=== PATIENT | female | born 1985 | race Caucasian/White ===

== ENCOUNTER → 2016-10-21 | Outpatient (CLI) | payer BC ==
[~2016-10-21] MED LIST: OXYC-57 PO; PRENTAB26 PO
== END | disposition home or self-care (01) ==
LOC: C.PAPS 14:53 → MERGE 14:53
PROVIDERS: ATTEND Physician Assistant
DX: Z01.419 Encounter for gynecological examination (general) (routine) without abnormal findings (principal); Z11.51 Encounter for screening for human papillomavirus (HPV)

== ENCOUNTER 2021-03-25 05:29 | Inpatient (IN) ==
--- NOTE | 2021-03-15 10:06 | Anesthesiology Consultation ---
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 No known Covid infection in the past 90 days. Patient is vaccinated for Covid. No known Covid positive contacts or Covid related symptoms. Preop Covid testing 03/21/21= will await results History Surgery Operation Date: 03/25/21 07:30 Proposed Procedures p Section Delivery of Baby through abdominal Incision - Marilu Fleming MD, FACOG s Bilateral Tubal Ligation - Marilu Fleming MD, FACOG Height/Weight Height: 5 ft 9 in Weight: 94.801 kg Allergies Allergy/AdvReac Type Severity Reaction Status Date / Time No Known Drug Allergies Allergy Verified 03/14/21 15:35 Medications Home Medications Medication Instructions Recorded Confirmed Last Taken prenat.vits,luisa,[id number] 1 tab PO QDL 03/10/19 03/14/21 Unknown valacyclovir 1 gram tablet 1,000 mg PO QDL 03/14/21 03/14/21 Unknown (Valtrex) Past Medical History Medical History History of COVID-19 03/2020; loss of taste/smell; resolved History of oligohydramnios Mild cervical dysplasia Past Family History Family History Grandmother (Paternal) Pancreatic cancer Mother Hypertension Father Hypertension Other No family history of adverse response to anesthesia Denies family history of Ovarian cancer Breast cancer Colorectal cancer Past Surgical History Surgical History History of colposcopy History of wisdom tooth extraction S/P section x2 Social History Smoking Status: Never smoker Do You Dip or Chew Tobacco: No Hx Alcohol Use: No Hx Substance Use: No substance use type: does not use Testing Electrocardiogram Date: 07/19/20 Normal sinus rhythm at 97 bpm. Possible left atrial enlargement.
--- NOTE | 2021-03-18 16:20 | History and Physical Report ---
DATE OF ADMISSION AND PLANNED DATE OF : 03/25/2021 PREOPERATIVE DIAGNOSES: 1. Intrauterine at 39 and 5/7 weeks. 2. Advanced maternal age. 3. History of previous section x2, desires repeat. 4. Desire for permanent surgical sterilization. 5. Herpes simplex virus, on Valtrex prophylaxis. HISTORY OF PRESENT ILLNESS: This patient is a 35-year-old white female, 3, para 2-0-0-2, who presents for repeat and tubal ligation. In 03/2015, she had her first baby at 41 weeks, measuring 7 pounds 12 ounces, male, by . This was complicated by oligohydramnios. Her second was in 06/2017, she had a 39-week repeat for a 6-pound male infant in [place], [place]. She now presents for her third . Given 2 previous C-sections, a repeat was recommended. She also desires permanent surgical sterilization. The has been uncomplicated. She has advanced maternal age and testing has been good and reassuring. Baby is in vertex presentation. She notes good movement and no labor symptoms at her preoperative visit today. ALLERGIES: No known drug allergies. MEDICATIONS: vitamins and valacyclovir 1 g daily. PAST MEDICAL HISTORY: Significant for history of COVID-19 in 03/2020 and a history of mild cervical dysplasia. PAST SURGICAL HISTORY: She has had a history of colposcopy, wisdom teeth extraction and x2. FAMILY HISTORY: Noncontributory. PAST OBSTETRICAL AND GYNECOLOGIC HISTORY: As noted above. SOCIAL HISTORY: The patient does not smoke or drink alcohol. She denies drug use. She lives with her spouse and 2 sons. 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 She has received a COVID vaccine. PHYSICAL EXAMINATION: GENERAL: This is a well-developed, well-nourished white female in no acute distress. VITAL SIGNS: Her blood pressure was 118/80 and her weight is 211 pounds. NECK: Supple. HEART: Regular rate and rhythm. LUNGS: Clear to auscultation. ABDOMEN: Soft and gravid. EXTREMITIES: Show no edema. PELVIS: Cervix is deferred. She has a reactive NST in the office. LABORATORY DATA: Blood type A positive, antibody negative, rubella immune, RPR nonreactive, HIV negative, hepatitis B negative. Glucose tolerance test, she originally failed the 28-week glucose at 132. She did a 2-hour and failed the fasting, but then fasted appropriately and a 2-hour was repeated and was normal. Chlamydia and gonorrhea negative. Low-risk Panorama, cystic fibrosis and spinal muscular atrophy negative in the last . IMPRESSION AND PLAN: Jasmine is a 35-year-old white female, 3, para 2-0-0-2 with a history of previous section x2, who now presents for a third repeat section and tubal sterilization. The risks of the procedure were discussed with the patient including the risks of anesthesia, bleeding requiring transfusion, infection, poor wound healing, damage to surrounding structures including bowel, bladder, vessels, nerves and ureters with need for further surgery, hospitalization or intervention. We discussed the possible injury to baby. We discussed the other risks involved with any surgery including heart attack, blood clot, stroke, or . Consent was reviewed and signed. She desires a tubal ligation. She declines other reversible forms of contraception including vasectomy for her . She understands the permanence of this and that should she have a failure, there is an increased risk of ectopic. Job ID: [id number] [facility]
[2021-03-25] MEDS ORDERED: CITRIC ACID/SODIUM CITRATE 15 ML UDC PO SCH (06:00)
[2021-03-25] MEDS ORDERED: ceFAZolin 2,000 MG in SYRINGE 0 ML IV SCH (06:00)
[2021-03-25] MEDS ORDERED: LACTATED RINGER'S 1,000 ML IV SCH ×2 (06:00→08:45)
[2021-03-25 06:33] LABS: Basophils # (auto) 0.02 K/uL (0-0.2); Basophils % (auto) 0.2 %; Eosinophils % (auto) 1.1 %; Hematocrit (blood only) 41.2 % (37-47); Hemoglobin 14.6 g/dL (12.0-16.0); Immature Granulocytes # (auto) 0.12 K/uL (0.00-0.02); Immature Granulocytes % (auto) 1.4 %; Lymphocytes # (auto) 1.68 K/uL (1.2-3.4); Lymphocytes % (auto) 19.1 %; Mean Corpuscular Hemoglobin 31.5 pg (25-34); Mean Corpuscular Hgb Conc 35.4 g/dL (32-36); Mean Platelet Volume 10.6 fL (7.4-10.4); Monocytes # (auto) 0.74 K/uL (0.11-0.59); Monocytes % (auto) 8.4 %; Neutrophils # (auto) 6.13 K/uL (1.4-6.5); Neutrophils % (auto) 69.8 %; Platelet Count 221 K/uL (130-400); RDW Coefficient of Variation 12.8 % (11.5-14.5); RDW Standard Deviation 41.4 fL (36.4-46.3); Red Blood Count 4.63 M/uL (4.2-5.4); White Blood Count 8.79 K/uL (4.8-10.8)
[2021-03-25] MEDS ORDERED: MoRPHine SULFATE PF 1 MG/ML 10 ML AMP/VIAL ONE (06:42)
[2021-03-25] MEDS ORDERED: fentaNYL citrate 100 MCG/2 ML VIAL ONE (06:42)
[2021-03-25] MEDS ORDERED: OXYTOCIN 10 UNITS/ML VIAL ONE (06:42)
--- NOTE | 2021-03-25 07:13 | History & Physical Bridge Note ---
Date of Service March 25, 2021 History & Physical Bridge Note I have examined the patient, reviewed the History & Physical and in the interval since the performance of the History & Physical I have noted the following changes of clinical significance: no changes noted
[2021-03-25] MEDS ORDERED: ePHEDrine sulfate 50 MG/ML SYR ONE (07:58)
[2021-03-25] MEDS ORDERED: PHENYLEPHRINE 100MCG/ML 5ML SYR ONE (08:00)
[2021-03-25] MEDS ORDERED: diphenhydrAMINE 50 MG/ML VIAL IV PRN (08:19)
[2021-03-25] MEDS ORDERED: NALOXONE HCL 1 MG in SODIUM CHLORIDE 0.9% 1000ML 1,000 ML IV PRN (08:19)
[2021-03-25] MEDS ORDERED: MoRPHine SULFATE 2 MG/ML CARP IV PRN (08:19)
[2021-03-25] MEDS ORDERED: ONDANSETRON INJ 2 MG/ML 2 ML VIAL IV PRN (08:19)
[2021-03-25] MEDS ORDERED: NALOXONE HCL 0.4 MG/1 ML VIAL/CARP IV PRN (08:19)
[2021-03-25] MEDS ORDERED: ePHEDrine sulfate 50 MG/ML AMP IV PRN (08:19)
[2021-03-25] MEDS ORDERED: NALBUPHINE HCL INJ 10 MG/ML AMP IV PRN (08:19)
[2021-03-25] MEDS ORDERED: NALOXONE HCL 0.08 MG in SYRINGE 1.8 ML IV PRN (08:19)
[2021-03-25] MEDS ORDERED: MoRPHine SULFATE PF 1 MG/ML 10 ML AMP/VIAL INT SPINAL ONE (08:19)
[2021-03-25] MEDS ORDERED: LACTATED RINGER'S 500 ML IV PRN (08:19)
[2021-03-25] MEDS ORDERED: NO NARCOTICS OR SEDATIVES SCH (08:30)
[2021-03-25] MEDS ORDERED: DC INTRASPINAL MORPHINE SCH (08:30)
[2021-03-25] MEDS ORDERED: SODIUM CHLORIDE 0.9% 1000ML 1,000 ML IV SCH (08:30)
[2021-03-25] MEDS ORDERED: HYDROCORTISONE ACETATE 25 MG SUPP PR PRN (08:43)
[2021-03-25] MEDS ORDERED: BENZOCAINE 20% AER SPR 82.5 GM CAN EXT PRN (08:43)
[2021-03-25] MEDS ORDERED: DIPHTHERIA/TETANUS/PERTUSSIS 0.5 ML SYR/VIAL IM ONE (08:43)
[2021-03-25] MEDS ORDERED: SENNA 8.6 MG TAB PO PRN (08:43)
[2021-03-25] MEDS ORDERED: SUPERCREAM 0.870% 15 GM JAR EXT PRN (08:43)
[2021-03-25] MEDS ORDERED: MAGNESIUM HYDROXIDE SUSP 30 ML UDC PO PRN (08:43)
--- NOTE | 2021-03-25 08:50 | Operative Report ---
PG Post Operative Report Pre & Post Diagnosis Operation Date: 03/25/21 07:30 Pre-Op Diagnosis: ; Previous c/s x 2, Request for sterilization Post-Op Diagnosis: Same; Delivery of a live male child at 0812 ( Main OR 3) I identified the patient and participated in the time-out.: Yes Procedure Operation Date: 03/25/21 07:30 Actual Procedures p Repeat lower transverse Section Delivery of Baby through abdominal Incision - Marilu Fleming MD, FACOG s Bilateral Tubal Ligation(Bilateral) - Marilu Fleming MD, FACOG Surgeon Marilu Fleming MD, FACOG Crystallizer Operator Eric Caban, MS2 Estimated Blood Loss 600 Findings Consistent with Post-Op Diagnosis viable male in cephalic presentation, nl tubes /ovs noted. apgars pending Fluids 900cc Specimens bilateral tubal segments Drains diaz Complications none Disposition Accompanied Patient To Recovery: Yes Disposition: L&D Indications [id number] who presents for repeat c/s and tubal. Description of Procedure The patient was taken to the operating room where she was identified verbally and by bracelet. She was seated on the operating table where a spinal anesthetic was placed by anesthesia. She was then placed in the supine position with a leftward tilt. A Diaz catheter was placed sterilely. the patient was prepped and draped in a normal standard fashion. the anesthetic was tested and found to be adequate. A time-out was held, identifying correct patient, p rocedure, positioning and preoperative antibiotics. There were no concerns. A Pfannenstiel skin incision was made with a knife and taken down to the underlying layer of fascia with the knife and Bovie electrocautery. Bleeding was attended to with the Bovie. The fascia was incised in the midline with the knife and taken out laterally with scissors. The superior edge of the fascial incision was grasped, elevated and the underlying layer of rectus muscle was taken off bluntly and with scissors. In a similar fashion, the inferior edge of the fascial incision was grasped, elevated and the underlying layer of rectus muscle was taken off bluntly and with scissors. The muscles were bluntly in the midline. The peritoneum was entered bluntly. The incision was then stretched. The bladder blade was placed. The vesicouterine peritoneum was identified, entered with scissors and taken out laterally with scissors. The bladder flap was created digitally A hysterotomy incision was scored with a knife and the incision was stretched superiorly and inferiorly with the burr mill operator's fingers. The operators hand was placed into the incision and the head was delivered atraumatically with the assistance of a vacuum. Nuchal cord x 1. The nose and mouth were bulb suctioned. the rest of the infant was then delivered without difficulty. The nose and mouth were again bulb suctio brad. The cord was clamped and cut and the was then handed off to the awaiting shooter helper for drying and attention. Cord blood and segment were obtained. The placenta was Manually extracted. The uterus was exteriorized and cleared of all clot and debris with moistened laparotomy sponges. The hysterotomy incision was repaired in one layer. Several figure of eight sutures of 0 vicryl used for hemostasis. Hemostasis was noted to be good. Posterior cul-de-sac was irrigated and cleared of all clot and debris. A bilateral modified Pomery tubal ligation was performed. the left tube was grasped with a Laurie and a loop was made with two sutures of 2-0 plain gut. the tube was removed with scissors and stumps cauterized. This was repeated on the right side. The hysterotomy inci swati was again inspected and found to be hemostatic. the uterus was reinteriorized. Hysterotomy incision was again inspected and found to be hemostatic. Rectus muscles were reapproximated with several interrupted stitches of 0 Vicryl. The fascia was then reapproximated with 0 Vicryl starting at the edges and meeting in the midline. The subcuticular tissues were copiously irrigated and bleeding was attended to with cautery. The skin was then closed with 4-0 Vicryl in a subcuticular fashion. All sponge, lap and needle counts correct x 2. Patient taken to recovery in stable condition. I attest to the content of the Intraoperative Record and any orders documented therein. Any exceptions are noted below. OB Procedure Charges [id number] Add on Tubal for C/S
[2021-03-25] MEDS: KETOROLAC 30 MG/ML VIAL IV PRN ×2 (09:33→22:30)
[2021-03-25] MEDS: OXYTOCIN 20 UNITS in LACTATED RINGER'S 1,000 ML IV SCH ×2 (10:03→18:35)
--- NOTE | 2021-03-25 11:03 | Anesthesiology Progress Note ---
Date of Service March 25, 2021 Anesthesia Post Procedure Vital Signs Vital Signs: Temp Pulse Resp BP Pulse Ox 03/25/21 11:01 71 96 03/25/21 10:56 72 99 03/25/21 10:55 85 110/55 L 03/25/21 10:52 78 94 03/25/21 10:51 74 95 03/25/21 10:46 86 112/57 L 99 03/25/21 10:41 65 99 03/25/21 10:36 69 113/55 L 98 03/25/21 10:35 69 93 03/25/21 10:31 64 99 03/25/21 10:28 67 89 L 03/25/21 10:26 72 111/63 99 03/25/21 10:25 20 03/25/21 10:21 68 97 03/25/21 10:16 69 97 03/25/21 10:15 71 119/70 03/25/21 10:11 69 98 03/25/21 10:06 75 98 03/25/21 10:05 71 116/66 03/25/21 10:01 74 97 03/25/21 09:57 20 03/25/21 09:56 68 116/66 97 03/25/21 09:55 20 03/25/21 09:51 71 98 03/25/21 09:46 72 111/62 97 03/25/21 09:45 20 03/25/21 09:41 71 99 03/25/21 09:36 69 119/71 03/25/21 09:35 20 03/25/21 09:31 76 100 03/25/21 09:26 67 115/62 98 03/25/21 09:25 20 03/25/21 09:21 76 97 03/25/21 09:16 70 110/59 L 100 03/25/21 09:15 20 03/25/21 09:11 73 94 03/25/21 09:09 75 94 03/25/21 09:07 67 117/63 03/25/21 09:06 68 111/55 L 97 03/25/21 09:05 20 03/25/21 09:01 69 96 03/25/21 08:56 73 100 03/25/21 08:55 36.6 C 64 20 114/56 L 03/25/21 07:11 70 20 138/71 03/25/21 05:50 36.7 C 18 03/25/21 05:46 36.7 C 100 H 18 145/80 H Pain Intensity Bilateral Lower Abdomen: Pain Intensity: 1 Transfer of Care Handoff Completed per policy Notes Mental Status: alert / awake / arousable and participated in evaluation Patient Amnestic to Procedure: Yes Nausea / Vomiting: adequately controlled Pain: adequately controlled Airway Patency, RR, SpO2: stable & adequate BP & HR: stable & adequate Hydration State: stable & adequate Anesthetic Complications: no major complications apparent and Pt Satisfied with anesthetic care
[2021-03-25] MEDS: SIMETHICONE 80 MG CHEW PO SCH (20:37)
[2021-03-25] MEDS: DOCUSATE SODIUM 100 MG CAP PO SCH (20:37)
[2021-03-26] MEDS ORDERED: ONDANSETRON INJ 2 MG/ML 2 ML VIAL IV PRN (02:19)
[2021-03-26] MEDS ORDERED: PROMETHAZINE HCL 25 MG in SODIUM CHLORIDE 0.9% 50 ML IV PRN (02:19)
[2021-03-26] MEDS ORDERED: KETOROLAC 30 MG/ML VIAL IV PRN (02:19)
[2021-03-26] MEDS ORDERED: diphenhydrAMINE Capsule 25 MG CAP PO PRN (02:19)
[2021-03-26] MEDS ORDERED: diphenhydrAMINE 50 MG/ML VIAL IV PRN (02:19)
[2021-03-26] MEDS ORDERED: MEPERIDINE HCL 50 MG/ML CARP IV PRN (02:19)
[2021-03-26] MEDS: IBUPROFEN 600 MG TAB PO PRN ×4 (05:33→22:26)
[2021-03-26 06:20] LABS: Basophils # (auto) 0.02 K/uL (0-0.2); Basophils % (auto) 0.2 %; Eosinophils # (auto) 0.18 K/uL (0-0.5); Hematocrit (blood only) 34.1 % (37-47); Hemoglobin 11.8 g/dL (12.0-16.0); Immature Granulocytes # (auto) 0.06 K/uL (0.00-0.02); Immature Granulocytes % (auto) 0.7 %; Lymphocytes # (auto) 1.28 K/uL (1.2-3.4); Lymphocytes % (auto) 14.6 %; Mean Corpuscular Hemoglobin 31.1 pg (25-34); Mean Corpuscular Hgb Conc 34.6 g/dL (32-36); Mean Platelet Volume 10.4 fL (7.4-10.4); Monocytes # (auto) 0.74 K/uL (0.11-0.59); Monocytes % (auto) 8.4 %; Neutrophils # (auto) 6.51 K/uL (1.4-6.5); Neutrophils % (auto) 74.1 %; Platelet Count 180 K/uL (130-400); RDW Standard Deviation 42.4 fL (36.4-46.3); Red Blood Count 3.79 M/uL (4.2-5.4); White Blood Count 8.79 K/uL (4.8-10.8)
[2021-03-26] MEDS: DOCUSATE SODIUM 100 MG CAP PO SCH ×2 (07:34→20:52)
[2021-03-26] MEDS: SIMETHICONE 80 MG CHEW PO SCH ×4 (07:34→20:52)
[2021-03-26] MEDS: FERROUS SULFATE 325 MG TAB PO SCH (07:34)
[2021-03-26] MEDS: PRENATAL VITAMIN 1 TAB PO SCH (07:34)
--- NOTE | 2021-03-26 07:57 | Obstetrical Progress Note ---
Date of Service <Sam Baker MD - Last Filed: 03/26/21 08:33> March 26, 2021 Assessment & Plan <Sam Baker MD - Last Filed: 03/26/21 08:33> (1) Encounter for care and examination after delivery: POD 1: stable, improving, routine management -ambulating, voiding without difficulty -tolerating diet well -afebrile -anticipate d/c today in the afternoon or tomorrow OB f/u outpt in 6 wks <Heron Perez MD - Last Filed: 03/26/21 12:26> (1) Encounter for care and examination after delivery: Subjective <Sam Baker MD - Last Filed: 03/26/21 08:33> Jasmine is a 35 y/o female who is POD1 following and b/l tubal ligation at 39 WGA. She reports feeling well overall this morning. + abdominal cramping & minimal incisional pain when ambulating well managed on analgesics. Voiding +. Tolerating meals overnight and able to ambulate without difficulty. Has not passed gas or had a bowel movement. Currently . Review of Systems Denies fever, chills, sweats Denies shortness of breath, difficulty breathing, chest pain, palpitations, chest pressure. Denies breast pain. Denies dysuria. Denies headache or changes in vision. Physical Exam <Sam Baker MD - Last Filed: 03/26/21 08:33> General: Alert, oriented. No acute distress. Cardiac: Regular rate and rhythm, no murmurs/rubs/gallops. Respiratory: Clear to auscultation bilaterally a/p, no wheezes/rales/rhonchi. No increased work of breathing. Symmetrical chest rise. No respiratory distress. Abdomen: Soft, nontender, nondistended. Bowel sounds present. Uterus: Uterine fundus firm, palpable 4 cm below umbilicus. Surgical scar clean and healing well. Lower Extremities: No lower extremity edema or swelling. No deep calf pain. Cristian's negative bilaterally. Results & Data ([facility]) <Sam Baker MD - Last Filed: 03/26/21 08:33> Vital Signs (Past 12 Hours) Vital Signs Temp Pulse Resp BP Pulse Ox 03/26/21 03:30 36.7 C 72 18 127/76 03/26/21 01:17 18 98 03/26/21 00:29 18 96 03/25/21 22:58 36.6 C 63 18 115/74 98 03/25/21 22:23 18 97 03/25/21 21:30 18 98 03/25/21 20:15 18 96 <Heron Perez MD - Last Filed: 03/26/21 12:26> Co-Signing Physician Notes Patient seen and evaluated and agree with the above findings and plan. Routine OB Care. Resident Activity Tracking <Sam Baker MD - Last Filed: 03/26/21 08:33> Resident Involvement: Resident Care Provided Care Provided: OB Delivery
[2021-03-26] MEDS: oxyCODONE/ACETAMINOPHEN 5mg/325mg TAB PO PRN ×4 (10:15→22:27)
[2021-03-26] MEDS ORDERED: bisacodyL 5 MG TABEC PO SCH (20:00)
[2021-03-27] MEDS: oxyCODONE/ACETAMINOPHEN 5mg/325mg TAB PO PRN ×3 (02:29→09:39)
[2021-03-27] MEDS: IBUPROFEN 600 MG TAB PO PRN ×3 (02:29→09:39)
[2021-03-27 06:17] LABS: Hematocrit (blood only) 35.4 % (37-47); Hemoglobin 11.9 g/dL (12.0-16.0)
--- NOTE | 2021-03-27 06:41 | Obstetrical Progress Note ---
Date of Service <Sam Baker MD - Last Filed: 03/27/21 07:29> March 27, 2021 Assessment & Plan <Sam Baker MD - Last Filed: 03/27/21 07:29> (1) Encounter for care and examination after delivery: POD 2: stable, improving; routine management -ambulating, voiding without difficulty -pain managed on analgesia -will send home on short Percocet dose -tolerating regular diet -anticipate d/c today -OB f/u outpt in 6 wks <Pily Ramires MD, FACOG - Last Filed: 03/27/21 07:34> (1) Encounter for care and examination after delivery: Subjective <Sam Baker MD - Last Filed: 03/27/21 07:29> Jasmine is a 35 y/o female who is POD 2 following and bilateral tubal ligation at 39.5 WGA. She reports feeling well overall this morning. ++ abdominal cramping pain well managed on analgesics. Voiding +. Tolerating meals overnight and able to ambulate without difficulty. + passing gas but no bowel movement. Currently breast feeding. Review of Systems Denies fever, chills, sweats Denies shortness of breath, difficulty breathing, chest pain, palpitations, chest pressure. Denies breast pain. Denies dysuria. Denies headache or changes in vision. Physical Exam <Sam Baker MD - Last Filed: 03/27/21 07:29> General: Alert, oriented. No acute distress. Cardiac: Regular rate and rhythm, no murmurs/rubs/gallops. Respiratory: Clear to auscultation bilaterally a/p, no wheezes/rales/rhonchi. No increased work of breathing. Symmetrical chest rise. No respiratory distress. Abdomen: Soft, nontender, nondistended. Bowel sounds present. Uterus: Uterine fundus firm, palpable 3 cm below umbilicus. Surgical scar clean and healing well. Lower Extremities: No lower extremity edema or swelling. No deep calf pain. Cristian's negative bilaterally. Results & Data ([facility]) <Sam Baker MD - Last Filed: 03/27/21 07:29> Vital Signs (Past 12 Hours) Vital Signs Temp Pulse Resp BP Pulse Ox 03/27/21 02:32 55 L 130/85 03/27/21 00:10 36.6 C 64 16 143/80 H 98 03/26/21 19:40 36.5 C 67 16 129/85 100 <Pily Ramires MD, FACOG - Last Filed: 03/27/21 07:34> Co-Signing Physician Notes Resident Physician Supervision Note: I was present with Dr. Baker during the history and exam. I discussed the case with the resident and agree with the findings and plan as documented in the note. Any exceptions or clarifications are listed here: Patient doing well, ready to go home, instructions reviewed, f/u 6 wks pp check. breast/rhpos/ RI. checked on papdmp and no issues identified. Documented By: Pily Ramires MD, FACOG Resident Activity Tracking <Sam Baker MD - Last Filed: 03/27/21 07:29> Resident Involvement: Resident Care Provided Care Provided: OB Delivery
[2021-03-27] MEDS: SIMETHICONE 80 MG CHEW PO SCH (08:00)
[2021-03-27] MEDS: PRENATAL VITAMIN 1 TAB PO SCH (08:01)
[2021-03-27] MEDS: DOCUSATE SODIUM 100 MG CAP PO SCH (08:02)
[2021-03-27] MEDS: FERROUS SULFATE 325 MG TAB PO SCH (08:02)
[2021-03-27] MEDS ORDERED: bisacodyL 10 MG SUPP PR PRN (08:43)
--- NOTE | 2021-03-28 22:09 | Discharge Summary (DS) ---
DATE OF ADMISSION: 03/25/2021 DATE OF DISCHARGE: 03/27/2021 ADMIT DIAGNOSES: 1. Intrauterine at 39 and 5/7 weeks. 2. Advanced maternal age. 3. History of previous section x2, desires repeat. 4. Desire for permanent surgical sterilization. 5. Herpes simplex virus history, on Valtrex prophylaxis. DISCHARGE DIAGNOSES: 1. Intrauterine at 39 and 5/7 weeks. 2. Advanced maternal age. 3. History of previous section x2, desires repeat. 4. Desire for permanent surgical sterilization. 5. Herpes simplex virus history, on Valtrex prophylaxis. PROCEDURE: Repeat low transverse section with bilateral modified Amanda tubal ligation. HISTORY: This patient is a 35-year-old white female, 3, para 2-0-0-2, who presents for repea t and tubal ligation. In 03/2015, she had her first baby at 41 weeks, measuring 7 pounds 1 2 ounces. This was a male by . The was complicated by oligohydramnios. Her seco nd was in 06/2017 where she had a 39-week repeat for a 6-pound male in [facility]. She now presents in her third . Given 2 previous C-sections, a repeat was recommended. She also desires permanent surgical sterilization. The has been uncomplicate d. She has advanced maternal age and testing has been good and reassuring. Baby is in vertex presen tation. She had good movement and no labor symptoms at her preoperative visit. For the rest of the patient's detailed history and physical, please see the history and physical. ASSESSMENT: This is a 35-year-old white female, 3, para 2-0-0-2 with a history of pr evious section x2, now presents for a third repeat and tubal sterilization. HOSPITAL COURSE: The patient underwent a repeat low transverse section with modified bilate ral Amanda tubal ligation. Estimated blood loss was 600 mL. FINDINGS: Viable male in cephalic presentation. Normal tubes, ovaries and uterus noted. The patient's postoperative course was uncomplicated. She tolerated a regular diet, ambulated withou t difficulty, voided after the removal of her Escalante catheter and had her pain well managed on oral pa in medication. She was discharged home on postoperative day 2 for a 6-week followup. Discharge H an d H was 11.9 and 35.4. Job ID: [id number]
== END 2021-03-27 10:08 | disposition home or self-care (01) | DRG 785 ==
LOC: 4S1 05:29 → EDSTATUS 07:30 → 4S2 11:42
PROC: M.PPTLD (2021-03-25 07:30)